=== PATIENT | male | born 1960 | race Caucasian/White ===

== ENCOUNTER 2017-03-05 12:19 | Emergency (ER) | payer MEDICAID ==
[~2017-03-05 12:19] MED LIST: IBUPROFEN 800 MG TAB PO SCH; predniSONE 20 MG TAB PO SCH
[2017-03-05 12:41] VITALS: RESP 18
--- NOTE | 2017-03-05 12:47 | EDPHY ---
H & P Stated Complaint: back pain Time Seen by Provider: 03/05/17 12:47 - Personal History Current Tetanus Diphtheria and Acellular Pertussis (TDAP): Unsure - Medical/Surgical History Hx Asthma: No Hx Chronic Respiratory Disease: Yes Hx Diabetes: No Hx Cardiac Disease: No Hx Renal Disease: No Hx Cirrhosis: No Hx Alcoholism: No Hx HIV/AIDS: No Hx Splenectomy or Spleen Trauma: No Other PMH: COPD, HTN, CHF - Social History Smoking Status: Current every day smoker Constitutional: Initial Vital Signs Temperature (C) 36.9 C 03/05/17 12:37 Heart Rate 94 03/05/17 12:37 Respiratory Rate 18 03/05/17 12:37 Blood Pressure 164/89 H 03/05/17 12:37 O2 Sat (%) 92 03/05/17 12:37 O2 Delivery Mode Room Air Allergies/Adverse Reactions: No Known Allergies Allergy (Unverified 03/05/17 13:01) Home Medications: Medication Instructions Recorded Ibuprofen [Motrin] 800 mg PO Q8 #20 tab 03/05/17 predniSONE 40 mg PO DAILY #10 tab 03/05/17 Medical Decision Making ED Course/Re-evaluation: CHIEF COMPLAINT: Back pain HISTORY OF PRESENT ILLNESS: This patient is a 56-year-old homeless gentleman who has a physician at the [facility]. He states that he has had back problems for several years in the past he has had such severe left leg pain that he has needed to use a walker. His back problems have exacerbated recently. He denies fevers or chills. He denies bowel or bladder dysfunction. He states that the pain radiates from his lower back down to his left leg to about the level of his knee. He also states that he has full function and can walk but he started using a walker again and he is having difficulty maneuvering in the snow and having more severe pain to the point where he can't sleep. He has not had any recent instrumentation of his back. REVIEW OF SYSTEMS: A 10 point review of systems was performed and is negative with the exception of the elements mentioned in the history of present illness. PHYSICAL EXAM: HR, BP, O2 Sat, RR. Temp noted General Appearance: Alert, well hydrated, appropriate, and non-toxic appearing. Head: Atraumatic without scalp tenderness or obvious injury Eyes: Pupils equal, round, reactive to light and accommodation, EOMI, no trauma , no injection. Ears: Clear bilaterally, no perforation, normal landmarks Nose: Atraumatic, no rhinorrhea, clear. Throat: There is no erythema or exudates, no lesions, normal tonsils, mucus membranes moist. Neck: Supple, nontender, no lymphadenopathy. Respiratory: No retractions, no distress, no wheezes, and no accessory muscle use. Lungs are clear to auscultation bilaterally. Cardiovascular: Regular rate and rhythm, no murmurs, rubs, or gallops. Bilateral carotid, radial, dorsalis pedis, and posterior tibial pulses intact. Good capillary refill all extremities. Gastrointestinal: Abdomen is soft, nontender, non-distended, no masses, no rebound, no guarding, no peritoneal signs. Musculoskeletal: Normal active ROM of all extremities, atraumatic. Neurological: Pain const rate leg raise and opposite straight leg raise. Worse on the left. No motor dysfunction on the left. Intact anterior tibialis. Alert, appropriate, and interactive. The patient has normal DTRs and non-focal cranial nerves, motor, sensory, and cerebellar exam. Skin: No rashes, good turgor, no nodules on palpation. Past medical history: Hepatitis C treated and cured, chronic recurrent lumbar spine degenerative problems, a bout of congestive heart failure a few years ago , hypertension Past surgical history: Noncontributory Family history: Noncontributory Social history: Homeless, denies alcohol or drug use except marijuana. Does not use cigarettes. DIFFERENTIAL DIAGNOSIS: The differential diagnosis for the patient's back pain included but was not limited to musculo-skeletal pain, epidural abscess, herniated disk, spinal fracture, and intra-abdominal causes including urinary system. MEDICAL DECISION MAKING: This patient has no evidence of fevers chills recent instrumentation or trauma. He has chronic back pain which is exacerbated recently. He is homeless. He has no evidence of intractable pain or motor deficit. This patient does not meet criteria for an emergent MRI. The biggest issue is the fact that the patient is homeless and he is currently using a walker to assist with his pain. Consequently, I have engaged the assistance of social work. Administered 60mg PO Prednisone and Lidocaine patch for pain relief. 14:16 Spoke with case management. The patient has been set up with a bed at the [facility] and provided with bus passes and sliders to assist him with using his walker in the snow. I have also given him prednisone 60 mg to take for 5 days. I will also discharge him with Oxy IR without Tylenol due to his liver disease. Follow up and return precautions discussed. He has been given a referral to [facility] for further evaluation of his back pain. He is comfortable with this plan. - Data Points Medications Given: Miscellaneous Information (Patch Removal) 1 ea TD DAILY21 KINGSLEY Stop: 09/01/17 20:59 Last Admin: 03/05/17 13:51 Dose: Not Given Discontinued Medications Lidocaine (Lidoderm 5%) 1 ea TD EDNOW ONE Stop: 03/05/17 13:07 Last Admin: 03/05/17 13:53 Dose: Not Given Oxycodone HCl (Oxycodone Ir) 10 mg PO EDNOW ONE Stop: 03/05/17 13:49 Last Admin: 03/05/17 13:49 Dose: 10 mg Prednisone (Prednisone) 60 mg PO EDNOW ONE Stop: 03/05/17 12:59 Last Admin: 03/05/17 13:03 Dose: 60 mg Departure - Departure Disposition: Home, Routine, Self-Care Clinical Impression: Back pain Qualifiers: Back pain location: low back pain Chronicity: chronic Back pain laterality: bilateral Sciatica presence: with sciatica Sciatica laterality: sciatica of left side Qualified Code(s): M54.42 - Lumbago with sciatica, left side Condition: Good Instructions: Chronic Back Pain (ED), Back Pain (ED) Additional Instructions: 1. Take Ibuprofen 800mg every 8 hours with food as prescribed as needed for pain. Take Oxycodone as prescribed for severe pain. 2. Use your Lidoderm patch as prescribed as needed for pain. 3. Follow up with your primary care provider. We have also referred you to a local group of spine specialists for further evaluation. 4. Return to the emergency department for severe pain, fever, numbness, difficulty walking, change in location or nature of pain or other concerns. Referrals: [facility],. [Clinic] - As per Instructions [facility] [Outside] - As per Instructions Prescriptions: Ibuprofen [Motrin] 800 mg PO Q8 #20 tab predniSONE 40 mg PO DAILY #10 tab Report Scribed for: Tevin Banda Report Scribed by: Karon Mo Date of Report: 03/05/17 Time of Report: 13:06
[2017-03-05] MEDS ORDERED: predniSONE 20 MG TAB PO ONE (12:58)
[2017-03-05] MEDS: LIDOCAINE 5% 1 EA PATCH TD ONE ×2 (13:23→13:53)
[2017-03-05] MEDS ORDERED: oxyCODONE IR 5 MG TAB ONE (13:47)
[2017-03-05] MEDS ORDERED: oxyCODONE IR 5 MG TAB PO ONE (13:48)
[2017-03-05 14:28] VITALS: BP 158/93; PULSE 92; TEMP 98.8; O2SAT 100
--- NOTE | 2017-03-05 15:31 | ASMTCMCOM ---
CM Note CM Note Notes: Met with patient and his significant other. They are enrolled in the [facility] in [place] but are concerned about sleeping arrangements (floor) at the [facility]. We discussed options and I have reserved one of our [facility] beds for the night. This will provide patient with a bed/cot to sleep in which will provide him with a little more comfort. I have also provided patient with a couple local leslie passes and MAPPED his prescriptions for Ibuprofen and Prednisone. Patient aware that CM was able to provide meds as a courtesy due to his current back issues and the weather. He understands that if he needs more medications he will need to follow up with his Dr. at the [facility] in [place]. Patient also tells CM that they are working with residential case manager in [facility] Date Signed: 03/05/2017 03:31 PM Electronically Signed By:Vianey Mora RN
[2017-03-05] MEDS ORDERED: PATCH REMOVAL 1 EA PATCH TD SCH (21:00)
== END 2017-03-05 15:26 | disposition home or self-care (01) ==
DX: M54.42 Lumbago with sciatica, left side (principal); I11.0 Hypertensive heart disease with heart failure; I50.9 Heart failure, unspecified; J44.9 Chronic obstructive pulmonary disease, unspecified; F17.200 Nicotine dependence, unspecified, uncomplicated
CPT/HCPCS: J7512

== ENCOUNTER 2017-03-22 13:31 | Inpatient (IN) | payer MEDICAID ==
--- NOTE | 2017-03-22 14:52 | CPEKG ---
Heart Rate: 89 RR Interval: 674 P-R Interval: 180 QRSD Interval: 92 QT Interval: 388 QTC Interval: 473 P [place]: 66 QRS [place]: 37 T Wave [place]: 38 EKG Severity - NORMAL ECG - EKG Impression: SINUS RHYTHM Electronically Signed By: Tequila Palencia 22-Mar-2017 21:05:13
[2017-03-22 14:54] LABS: PLATELET COUNT 82 10^3/uL (150-400)
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
[2017-03-22] MEDS ORDERED: HYDROmorphONE/DILAUDID 1 MG/ML INJ IVP PRN (18:04)
[2017-03-22] MEDS: oxyCODONE IR 5 MG TAB PO PRN ×2 (18:11→22:29)
[2017-03-22] MEDS ORDERED: D50W 25 GM/50 ML SYR IVP PRN (18:56)
[2017-03-22] MEDS ORDERED: ONDANSETRON 4 MG/2 ML VIAL IVP PRN (18:58)
[2017-03-22] MEDS ORDERED: ACETAMINOPHEN 325 MG TAB PO PRN (18:58)
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
[2017-03-22] MEDS ORDERED: IPRATROPIUM/ALBUTEROL 3 ML DEYVIAL ONE (20:06)
[2017-03-22] MEDS: IPRATROPIUM/ALBUTEROL 3 ML DEYVIAL IH SCH (20:09)
[2017-03-22] MEDS: FLUTICASONE/SALMETER 250/50MCG DISKUS IH SCH (20:09)
[2017-03-22] MEDS: predniSONE 20 MG TAB PO SCH (21:30)
[2017-03-22] MEDS: KETOROLAC 15 MG/1 ML SDV IVP PRN (21:30)
[2017-03-22] MEDS: PREGABALIN 75 MG CAP PO SCH (21:31)
[2017-03-22] MEDS: INSULIN REGULAR HUMAN 100 UNIT/ML SC SCH (23:49)
[2017-03-23] MEDS: oxyCODONE IR 5 MG TAB PO PRN ×5 (03:20→23:39)
[2017-03-23] MEDS: IPRATROPIUM/ALBUTEROL 3 ML DEYVIAL IH SCH ×4 (05:11→20:17)
[2017-03-23 07:06] LABS: PLATELET COUNT 75 10^3/uL (150-400)
[2017-03-23] MEDS ORDERED: LEVEMIR 10 UNIT SQ SCH (08:00)
[2017-03-23] MEDS: INSULIN REGULAR HUMAN 100 UNIT/ML SC SCH ×4 (08:18→23:38)
[2017-03-23] MEDS: FUROSEMIDE 40 MG/4 ML VIAL IVP SCH ×2 (08:31→15:00)
[2017-03-23] MEDS: predniSONE 20 MG TAB PO SCH (08:33)
[2017-03-23] MEDS: PANTOPRAZOLE SODIUM 40 MG TAB PO SCH (08:34)
[2017-03-23] MEDS: PREGABALIN 75 MG CAP PO SCH (08:34)
[2017-03-23] MEDS: INSULIN GLARGINE 100 UNITS/ML SYRINGE SC SCH ×2 (08:35→17:33)
--- NOTE | 2017-03-23 08:57 | PDHOMEO2F ---
Home Oxygen Face to Face Home Orders: I certify that a physician or a nurse practitioner or physician's assistant scientist has had a [id number] encounter with this patient on the date of this order due to the diagnosis listed, which relates to the primary reason the patient requires home oxygen. Alternative treatments have been tried, or considered, and deemed ineffective. It is anticipated that supplemental oxygen will result in improvement with treatment. Home oxygen qualifying diagnosis: COPD SpO2 on room air (%): 83 Frequency of home oxygen needed: continuous Home oxygen liters per minute: 3 Home oxygen delivery device: nasal cannula Concentrator: Yes E-tanks for mobility and back up: Yes If ordering portable O2, is the patient mobile in the home?: Yes I certify that, based on these findings, the home oxygen is medically necessary for this patient for the following length of time. Length of time home oxygen needed: 99 years
[2017-03-23] MEDS ORDERED: ENOXAPARIN 40 MG/0.4 ML SYR SC SCH (09:00)
[2017-03-23] MEDS ORDERED: NICOTINE 7 MG/24 HR PATCH TD SCH (09:00)
[2017-03-23] MEDS ORDERED: FUROSEMIDE 40 MG TAB PO SCH (09:00)
[2017-03-23] MEDS: KETOROLAC 15 MG/1 ML SDV IVP PRN ×3 (09:45→23:39)
[2017-03-23] MEDS: AZITHROMYCIN 250 MG TAB PO SCH (09:48)
[2017-03-23] MEDS ORDERED: NICOTINE 7 MG/24 HR PATCH TD PRN (10:28)
[2017-03-23] MEDS ORDERED: NICOTINE 14 MG/24 HR PATCH TD PRN (10:36)
--- NOTE | 2017-03-23 10:49 | PDMN ---
Medical Necessity Medical necessity: Change to IP, as of 03/22/17, per MD; los >2 mn for ongoing management of COPD exacerbation, worsening LE edema, chronic respiratory failure & severe L hip/leg pain; admit for further workup/monitoring, IV Lasix, Prednisone & nebs, CM consult & therapies; hx COPD, HTN, CHF, diabetes & homelessness; per H&P & order 03/22/17
[2017-03-23] MEDS: FLUTICASONE/SALMETER 250/50MCG DISKUS IH SCH ×2 (11:14→20:12)
[2017-03-23] MEDS: GABAPENTIN 100 MG CAP PO SCH (11:29)
--- NOTE | 2017-03-23 12:01 | HOSPPROG ---
Hospitalist Progress Note Assessment/Plan: Assessment: 56 yo M p/w acute COPD exacerbation in setting of chronic CHF, chronic musculoskeletal pain Plan: # COPD exacerbation. Acute, new problem, further w/u indicated. Likely 2/2 URI vs. poor outpt maintenance (does not have PCP, is not on any long-acting Rx) -remains clinically unresolved today w/ ongoing exp wheezes, short exp phase bilat and symptomatic SOB -cont D#2 Pred, ongoing scheduled duonebs, D#1 Azithro to shorten duration of sx (no PNA on CXR, personally interpreted) -supportive care w/ antitussive/mucolytics -RVP neg -get dimer to r/o PE as provoking factor -will need home supplemental oxygen, arranging w/ RT/case mgmt, complicated by homeless status # Chronic hypoxic respiratory failure. Patient is reportedly supposed to be on 3L NC at baseline (2/2 COPD, CHF), but he is not, reportedly due to homeless status -homelessness may not preclude supplemental o2 -RT to work on whether arranging is possible today # Chronic CHF. Unclear type, has LE edema and is not on diuretics or other Rx, EKG w/o ischemic findings (personally interpreted) -getting Echo to further define -does not appear to be in overt exacerbation on CXR, cont to monitor vol status -started on PO lasix bid, monitor lytes -start on CHEN # Chronic hip/knee/thigh pain. Suspect that this is osteoarthritic, but may also have neuropathic/sciatic component as well given his description -x-ray w/o fxr/dislocation -previously on lyrica, does not appear to be working, change to gabapentin 100/ 300 and encouraged outpt f/u at [facility] for ongoing PT -PRN NSAIDs -PT -heat pad Diet. Regular PPx. High risk, lovenox 40 Code. Full Dispo. ADD uncertain, remains clinically unresolved, patient admitted as INPT, cont INPT care as above. Subjective: ongoing cough, pain in LLE Objective: Vital Signs Temp Pulse Resp BP Pulse Ox 36.7 C 122 H 16 162/90 H 90 L 03/23/17 07:33 03/23/17 11:17 03/23/17 11:17 03/23/17 07:33 03/23/17 11:17 Microbiology 03/22/17 19:30 Respiratory Panel (PCR) - Final Nasal, Sinus - Swab No Organism Detected Laboratory Results 03/23/17 06:59 03/23/17 06:59 03/22/17 03/23/17 03/24/17 05:59 05:59 05:59 Intake Total 700 Output Total 600 1900 Balance 100 -1900 - Physical Exam Constitutional: no apparent distress, chronically ill appearing, uncomfortable, unkempt Cardiovascular: regular rate and rhythym, no murmur, rub, or gallop, edema (1+ bilat LE) Respiratory: reduced air movement (on exp bilat), expiratory wheeze, bronchial breath sounds, No inspiratory crackles, No respiratory distress Gastrointestinal: normoactive bowel sounds, soft, non-tender abdomen, no palpable masses Musculoskeletal: other (full ROM L hip and knee, able to ambulate safely) Neurologic: AAOx3, No weakness, No facial droop Psychiatric: interacting appropriately, not anxious, not encephalopathic, thought process linear ICD10 Worksheet Patient Problems: Problems Problem Status Onset Hypoxia Acute Dyspnea Acute Lower extremity edema Acute
[2017-03-23] MEDS ORDERED: guaiFENesin/CODEINE PHOS 10 ML UDCUP PO PRN (12:02)
--- NOTE | 2017-03-23 13:52 | ASMTCMCOM ---
CM Note CM Note Notes: 03/23/2017 Case Management Note Met w/pt and Reba. Pt requires O2 at d/c. Coordinated with RT. Emailed Jamil at the [facility] who agreed to O2 delivery before 10 am and after 5 pm at the [facility]. Insurance will only pay for portable O2 tanks and concentrator, insurance will not provide a portable concentrator. Pt is unable to pay for portable concentrator at this time. Pt and have completed the coordinated entry process at the [facility] and Jose is their pillowcase maker. Left VM at [phone] ext [phone] to alert to pt admission to hospital. Left room phone number for Jose to contact pt as pt cell phone is out of service for another week or so. Pt is part of the [facility] and rotates churches for sleeping at night. Discussed pt picking up O2 at senior care and taking it to the [facility] site each night or staying in the senior care and that case management would secure a reserved bed for pt only. Unfortunately case management can not secure a bed for . Pt does not want to leave and plans to grape picker O2 and stay in [facility] sites. There is family for both pt and however they are not a source of support at this time. Case Management d/c poc: to [facility] with O2. Follow up at [facility]. Case Management to follow. Date Signed: 03/23/2017 01:51 PM Electronically Signed By:Renuka Murdock RN
--- NOTE | 2017-03-23 14:13 | ECHO ---
[email or web address] [address] [address] Main: [phone] Fax: Transthoracic Echocardiogram Name: PRISCILA LEO MR#: [id number] Study Date: 03/23/2017 Study Time: 07:56 AM Date of : 1960 Age: 56 year(s) Height: 177.8 cm (70 in.) Weight: 103.42 kg (228 lb.) BSA: 2.21 m2 Gender: Male Examination: Echo Indication: CHF Image Quality: Technically Difficult Contrast: Requested by: Lela Cutler BP: 162 mmHg/90 mmHg Heart Rate: Rhythm: Indication: CHF Procedure Staff Binding Printer: Ariana Donaldson Physician: Clifford Jolly Requesting Provider: Conclusions: Mild concentric LV hypertrophy. EF is 68 %. Trivial mitral valve regurgitation. Trivial aortic valve regurgitation. There is no tricuspid valve regurgitation. Trivial pulmonic valve regurgitation. Normal size ascending aorta measuring 3.8 cm. Measurements: Chambers Valvular Assessment AV/MV Valvular Assessment TV/PV Normal Normal Normal Name Value Range Name Value Range Name Value Range Ao Tanisha (MM): 3.6 cm (2.2 cm-3.7 AV Vmax: 1.57 m/s (1 m/s-1.7 PV Vmax: 1.41 m/s (0.6 m/s-0.9 cm) m/s) m/s) IVSd (2D): 1.2 cm (0.6 cm-1.1 AV maxP mmHg ( - ) PV PGmax: 8 mmHg ( - ) cm) LVOT Vmax: 1.00 m/s (0.7 m/s-1.1 LVDd (2D): 5.5 cm (4.2 cm-5.9 m/s) cm) MV E Vmax: 0.61 m/s ( - ) LVDs (2D): 3.8 cm (2.1 cm-4 MV A Vmax: 0.85 m/s ( - ) cm) MV E/A: 0.72 ( - ) LVPWd (2D): 1.0 cm (0.6 cm-1 cm) LVEF (BP): 68 % (>=55 %) RVDd(2D): 3.6 cm (1.9 cm-3.8 cmmm) Continued Measurements: Chambers Valvular Assessment AV/MV Name Value Name Value Patient: PRISCILA LEO Study Date: 03/23/2017 Page 1 of 2 07:56 AM LADs Lon.7 cm MV DecTime: 230 m/s LA Area: 15.7 cm2 MV E/E' Septal: 8.90 MV E/E' Lateral: 6.70 Additional Vessels Name Value Ao Ascendin.8 cm Findings: Left Ventricle: Normal size left ventricle. Mild concentric LV hypertrophy. Normal global systolic LV function. EF is 68 %. No regional wall motion abnormality. Right Ventricle: Normal size right ventricle. Normal RV function. Left Atrium: The left atrium is normal in size. Right Atrium: The right atrium is normal in size. Mitral Valve: The mitral valve is normal in appearance. Trivial mitral valve regurgitation. No mitral stenosis is present. Aortic Valve: The aortic valve is tri-leaflet and functions normally. Trivial aortic valve regurgitation. No aortic valve stenosis is present. Tricuspid Valve: The tricuspid valve appears normal. There is no tricuspid valve regurgitation. Pulmonic Valve: The pulmonic valve is normal in appearance and function. Trivial pulmonic valve regurgitation. Aorta: Normal size aortic root measuring 3.6 cm. Normal size ascending aorta measuring 3.8 cm. Pericardium: No pericardial effusion. (No Signature Object) Patient: PRISCILA LEO Study Date: 03/23/2017 Page 2 of 2 07:56 AM [id number]
[2017-03-23] MEDS: BENZONATATE 100 MG CAP PO PRN ×2 (15:00→20:18)
[2017-03-23] MEDS: guaiFENesin 600 MG TAB.ER PO SCH ×2 (15:01→20:18)
[2017-03-23] MEDS ORDERED: GABAPENTIN 300 MG CAP PO SCH (21:00)
[2017-03-24] MEDS: oxyCODONE IR 5 MG TAB PO PRN ×4 (03:27→15:59)
[2017-03-24] MEDS: IPRATROPIUM/ALBUTEROL 3 ML DEYVIAL IH SCH ×2 (05:23→12:04)
[2017-03-24] MEDS: FUROSEMIDE 40 MG/4 ML VIAL IVP SCH (08:17)
[2017-03-24] MEDS: INSULIN GLARGINE 100 UNITS/ML SYRINGE SC SCH ×2 (08:18→15:59)
[2017-03-24] MEDS: guaiFENesin 600 MG TAB.ER PO SCH (08:19)
[2017-03-24] MEDS: predniSONE 20 MG TAB PO SCH (08:19)
[2017-03-24] MEDS: GABAPENTIN 100 MG CAP PO SCH (08:20)
[2017-03-24] MEDS: AZITHROMYCIN 250 MG TAB PO SCH (08:20)
[2017-03-24] MEDS: PANTOPRAZOLE SODIUM 40 MG TAB PO SCH (08:20)
[2017-03-24] MEDS: INSULIN REGULAR HUMAN 100 UNIT/ML SC SCH ×2 (09:49→12:35)
[2017-03-24] MEDS: FLUTICASONE/SALMETER 250/50MCG DISKUS IH SCH (12:02)
[2017-03-24 12:13] VITALS: O2SAT 91
[2017-03-24 12:18] VITALS: BP 133/80; PULSE 99; RESP 17; TEMP 98.2
--- NOTE | 2017-03-24 15:02 | HOSPPROG ---
Hospitalist Progress Note Assessment/Plan: : 56 yo M p/w acute COPD exacerbation in setting of chronic CHF, chronic musculoskeletal pain Plan: COPD exacerbation. complet 5 days of pred and azithro script for combivent Chronic hypoxic respiratory failure. Patient is reportedly supposed to be on 3L NC at baseline (2/2 COPD, CHF), but he is not, reportedly due to homeless status 02 Chronic CHF. Unclear type, has LE edema and is not on diuretics or other Rx, EKG w/o ischemic findings (personally interpreted) diuresed Chronic hip/knee/thigh pain. Suspect that this is osteoarthritic, but may also have neuropathic/sciatic component as well given his description limited script for opiates dispo: home today > 30 minutes Subjective: home 02 established. amenable to dc Objective: Vital Signs Temp Pulse Resp BP Pulse Ox 36.8 C 99 17 133/80 H 91 L 03/24/17 12:14 03/24/17 12:14 03/24/17 12:14 03/24/17 12:14 03/24/17 12:14 Laboratory Results 03/23/17 06:59 03/24/17 03:32 03/23/17 03/24/17 03/25/17 05:59 05:59 05:59 Intake Total 700 1440 Output Total 600 3500 Balance 100 -2059 - Physical Exam Constitutional: no apparent distress, appears nourished Eyes: PERRL, anicteric sclera Ears, Nose, Mouth, Throat: moist mucous membranes, hearing normal Cardiovascular: regular rate and rhythym, no murmur, rub, or gallop Respiratory: no respiratory distress, no rales or rhonchi Gastrointestinal: normoactive bowel sounds, soft, non-tender abdomen Genitourinary: no bladder fullness, No montano in urethra Skin: warm, normal color Musculoskeletal: full muscle strength Neurologic: AAOx3 ICD10 Worksheet Patient Problems: Problems Problem Status Onset Dyspnea Acute Hypoxia Acute Lower extremity edema Acute
--- NOTE | 2017-03-24 17:32 | ASDISCHSUM ---
Discharge Information Plan Status:Homeless/Senior Living Medically Cleared to Leave:03/23/2017 Discharge Date:03/24/2017 04:20 PM CM D/C Disposition:Home, Routine, Self-Care ADT D/C Disposition:Home, Routine, Self-Care Projected Discharge Date:03/24/2017 04:20 PM Transportation at D/C:Self Discharge Delay Reason: Follow-Up Date:03/24/2017 04:20 PM Discharge Slot: Final Diagnosis: Placement Information Patient Contact Information Contact Name:MAYKEL Relationship: Address:[address] Work Phone: City:[place] Alternate Phone: [facility]/Zip Code:[place] [address] Email: Financial Information Financial Class: Primary Plan Desc:[employer] [place] Primary Plan Number:[id number] Secondary Plan Desc: Secondary Plan Number: Assessment Information [facility] CM Progress Note CM Note CM Note Notes: 03/23/2017 Case Management Note Met w/pt and Reba. Pt requires O2 at d/c. Coordinated with . Mery Negron at the [facility] who agreed to O2 delivery before 10 am and after 5 pm at the [facility]. Insurance will only pay for portable O2 tanks and concentrator, insurance will not provide a portable concentrator. Pt is unable to pay for portable concentrator at this time. Pt and have completed the coordinated entry process at the [facility] and Jose is their counseling case manager. Left at [phone] ext [phone] to alert to pt admission to hospital. Left room phone number for Jose to contact pt as pt cell phone is out of service for another week or so. Pt is [facility] of [facility] and rotates churches for sleeping at night. Discussed pt [facility] and taking [facility] to the [facility] each night or staying in the [facility] and that case management would secure a reserved bed for pt only. Unfortunately case management can not secure a bed for . Pt does not want to leave and plans to picking supervisor O2 and stay in [facility] sites. There is family for both pt and however they are not a source of support at this time. Case Management d/c poc: to [facility] with O2. [facility] Case Management to follow. Date Signed: 03/23/2017 01:51 PM Electronically Signed By:Renuka Murdock RN LACE LACE Length of stay for Answers: 2 days current admission Acuity / Level of Care Answers: Was the patient admitted to hospital via the emergency department? Yes: Comorbidities - select Answers: Cerebrovascular disease all that apply Peripheral vascular disease Emergency dept visits in Answers: 1 last 6 months Score: 8 Date Signed: 03/24/2017 05:29 PM Electronically Signed By:Renuka Murdock RN Case Management Discharge Plan Note Case Management Discharge Discharge Order Complete? Answers: Yes Patient to Obtain Answers: Independently Medications Transportation Arranged Answers: Taxi - Voucher Discharge Comments Notes: 03/24/2017 Case Management Note Met w/pt and several times over the course of the day requiring significant amounts of time. Arranged delivery [facility] to [facility] the night. Provided loan closet information for pt walker request. Provided cab voucher for transport to [facility]. Emailed Jamil at the [facility] to keep updated and pass along progress to Jose the counseling case manager for the couple. Date Signed: 03/24/2017 05:31 PM Electronically Signed By:Renuka Murdock RN Intervention Information Intervention Type:Cab Vouchers Date of Service:03/24/2017 05:28 PM Patient Type:Inpatient Staff Member:MARIAH Murdock, [facility] Hours: Discipline: Severity: Comment:
--- NOTE | 2017-03-25 04:59 | GDS ---
[f rep st] DISCHARGE SUMMARY DISCHARGE DIAGNOSES: Acute on chronic hypoxemic respiratory failure, chronic obstructive pulmonary d isease, new homelessness, musculoskeletal pain, hypertension, tobacco use. HISTORY: Please see admission history and physical by Dr. Lela Cutler. HOSPITAL COURSE: The patient presented with worsening lower extremity edema and shortness of breath. He was diuresed. He had lost his oxygen secondary to homelessness. He had a lower extremity ultra sound, which was negative for DVT. He had a hip film, negative for fracture. He was diuresed a coup le of liters with improvement of his edema. He remained hypoxic. He had a negative D-dimer. The kena nguyễn is discharged home with oxygen, a few pain pills, refills of his prescriptions, which include b ronchodilators and tiotropium. Oxygen was provided. /[id number]/MODL
== END 2017-03-24 16:20 | disposition home or self-care (01) | DRG 190 ==
LOC: F2W 16:27 → OBSVTOIN 18:56
PROVIDERS: ADMIT Internal Medicine; ATTEND Internal Medicine
DX: J44.1 Chronic obstructive pulmonary disease with (acute) exacerbation (principal); I11.0 Hypertensive heart disease with heart failure; J96.21 Acute and chronic respiratory failure with hypoxia; I50.9 Heart failure, unspecified; M79.606 Pain in leg, unspecified; E11.9 Type 2 diabetes mellitus without complications; Z79.4 Long term (current) use of insulin; Z99.81 Dependence on supplemental oxygen; F17.210 Nicotine dependence, cigarettes, uncomplicated; Z59.0 Homelessness
CPT/HCPCS: 97161-GP; 97166-GO; 97530-GO; J1170; J1650; J1815; J1885; J1940; J7512

== ENCOUNTER 2017-07-21 23:48 | Emergency (ER) | payer MEDICAID ==
--- NOTE | 2017-07-22 00:05 | CPEKG ---
Heart Rate: 96 RR Interval: 625 P-R Interval: 180 QRSD Interval: 94 QT Interval: 392 QTC Interval: 496 P [place]: 71 QRS [place]: 38 T Wave [place]: 45 EKG Severity - ABNORMAL ECG - EKG Impression: SINUS RHYTHM EKG Impression: BORDERLINE PROLONGED QT INTERVAL Electronically Signed By: Uma Gutierrez 22-Jul-2017 08:16:11
--- NOTE | 2017-07-22 00:34 | EDPHY ---
H & P Stated Complaint: chest pain Time Seen by Provider: 07/22/17 00:15 HPI/ROS: HPI The patient presents with chest pain, brought in by ambulance. Apparently he was found passed out on someone's porch. Police were called initially and then the patient went to the park. He fell asleep again and then complained of chest pain so was transported to the emergency department for evaluation. The patient is quite sedate and not an adequate historian currently though he does deny chest pain. He says that he is always wheezing and that his legs are always swollen. He says he does not have access to his medications or his 3 L of oxygen that he is supposed to be wearing. He says he is staying at the [facility]. REVIEW OF SYSTEMS Constitutional: No fever, no chills. Eyes: No discharge. ENT: No sore throat. Cardiovascular: Positive for chest pain, no palpitations. Respiratory: No cough, no shortness of breath. Gastrointestinal: No abdominal pain, no vomiting. Genitourinary: No hematuria. Musculoskeletal: No back pain. Skin: No rashes. Neurological: No headache. PMHx: CHF, COPD, diabetes, hypertension Soc Hx: Homeless, likely alcohol use PHYSICAL General Appearance: Sleepy, arouses to loud voice, able to answer some questions Eyes: Pupils equal and round no pallor or injection ENT, Mouth: Mucous membranes moist Respiratory: There are audible inspiratory and expiratory wheezes Cardiovascular: Regular rate and rhythm Gastrointestinal: Abdomen is soft and non-tender, no masses, bowel sounds normal Neurological: A&O, moves all extremities Skin: Warm and dry, no rashes Musculoskeletal: Neck is supple non tender Extremities: symmetrical, 2+ pitting edema bilaterally with venous stasis changes Psychiatric: Patient is oriented X 3, there is no agitation Source: Patient, EMS Exam Limitations: Intoxication - Medical/Surgical History Hx Asthma: No Hx Chronic Respiratory Disease: Yes Hx Diabetes: No Hx Cardiac Disease: No Hx Renal Disease: No Hx Cirrhosis: No Hx Alcoholism: No Hx HIV/AIDS: No Hx Splenectomy or Spleen Trauma: No Other PMH: COPD, HTN, CHF, diabetes - Social History Smoking Status: Current every day smoker Constitutional: Initial Vital Signs Temperature (C) 36.4 C 07/21/17 23:55 Heart Rate 99 07/21/17 23:55 Respiratory Rate 20 07/21/17 23:55 Blood Pressure 131/99 H 07/21/17 23:55 O2 Sat (%) 90 L 07/21/17 23:55 O2 Delivery Mode Room Air O2 (L/minute) 2 Allergies/Adverse Reactions: No Known Allergies Allergy (Verified 07/21/17 23:55) Home Medications: Medication Instructions Recorded Albuterol Sulfate [Proair Hfa] 2 puffs IN QID PRN #1 hfa.aer.ad 03/24/17 Azithromycin [Zithromax] 500 mg PO DAILY #3 tab 03/24/17 Fluticasone/Salmeter 250/50Mcg 1 puffs IH BID #1 disk 03/24/17 [Advair 250/50 (*)] Furosemide [Lasix 40 MG (*)] 40 mg PO DAILY #30 tab 03/24/17 Levemir 10 units SQ BIDMEAL #1 03/24/17 Pregabalin [Lyrica 75mg (*)] 75 mg PO BID #60 cap 03/24/17 Tiotropium Inhaler [Spiriva 1 tab IN DAILY #1 mdi 03/24/17 Inhaler (RX)] oxyCODONE IR [Oxycodone Ir (*)] 5 - 10 mg PO Q4 PRN #20 tab 03/24/17 predniSONE 40 mg PO DAILY #3 tablet 03/24/17 Medical Decision Making - Diagnostics EKG Interpretation: EKG: Complete interpretation has been separately recorded in the [facility] archive. Summary impression: Sinus rhythm, no ST segment elevation or depression Imaging Results: Chest x-ray two views is unchanged from prior with mild cardiomegaly, no infiltrate, no effusion, interpreted by me, radiology interpretation is pending. Imaging: I viewed and interpreted images myself Differential Diagnosis: 57-year-old male with homelessness, hypertension, diabetes, CHF, COPD presents with complaint of chest pain when police picked him up at a park where he was sleeping. The patient has normal vital signs, seems intoxicated, has audible wheezing and lower extremity edema. Differential diagnosis includes [facility] seeking behavior, COPD in exacerbation, CHF exacerbation, ACS, pulmonary embolism is a consideration. In the emergency department, patient's chest x-ray, EKG, labs were checked and were all relatively unremarkable. The patient does seem to be chronically quite ill though does not seem to have decompensated and is not in CHF for COPD exacerbation. He had no ongoing chest pain here, I feel like PE is unlikely. His alcohol level was elevated. He eventually was able to walk with a steady gait and [facility]. - Data Points Laboratory Results: Laboratory Results 07/22/17 00:45 07/22/17 00:45 07/22/17 07/22/17 00:45 00:45 WBC 5.18 10^3/uL 10^3/uL (3.80-9.50) RBC 4.35 10^6/uL L 10^6/uL (4.40-6.38) Hgb 14.4 g/dL g/dL (13.7-17.5) Hct 41.3 % % (40.0-51.0) MCV 94.9 fL fL (81.5-99.8) MCH 33.1 pg pg (27.9-34.1) MCHC 34.9 g/dL g/dL (32.4-36.7) RDW 15.3 % H % (11.5-15.2) Plt Count 109 10^3/uL L 10^3/uL (150-400) MPV 9.9 fL fL (8.7-11.7) Neut % (Auto) 56.3 % % (39.3-74.2) Lymph % (Auto) 29.5 % % (15.0-45.0) [place] % (Auto) 8.7 % % (4.5-13.0) Eos % (Auto) 4.1 % % (0.6-7.6) Baso % (Auto) 0.8 % % (0.3-1.7) Nucleat RBC Rel Count 0.0 % % (0.0-0.2) Absolute Neuts (auto) 2.92 10^3/uL 10^3/uL (1.70-6.50) Absolute Lymphs (auto) 1.53 10^3/uL 10^3/uL (1.00-3.00) Absolute Monos (auto) 0.45 10^3/uL 10^3/uL (0.30-0.80) Absolute Eos (auto) 0.21 10^3/uL 10^3/uL (0.03-0.40) Absolute Basos (auto) 0.04 10^3/uL 10^3/uL (0.02-0.10) Absolute Nucleated RBC 0.00 10^3/uL 10^3/uL (0-0.01) Immature Gran % 0.6 % % (0.0-1.1) Immature Gran # 0.03 10^3/uL 10^3/uL (0.00-0.10) Sodium 144 mEq/L mEq/L (135-145) Potassium 3.8 mEq/L mEq/L (3.5-5.2) Chloride 106 mEq/L mEq/L (97-110) Carbon Dioxide 22 mEq/l mEq/l (22-31) Anion Gap 16 mEq/L mEq/L (8-16) BUN 15 mg/dL mg/dL (7-23) Creatinine 0.5 mg/dL L mg/dL (0.7-1.3) Estimated GFR > 60 Glucose 102 mg/dL H mg/dL (70-100) Calcium 7.9 mg/dL L mg/dL (8.5-10.4) Troponin I < 0.012 ng/mL ng/mL (0.000-0.034) NT-Pro-B Natriuret Pep 29 pg/mL pg/mL (0-125) Ethyl Alcohol 156 mg/dL H mg/dL (0-10) Medications Given: Discontinued Medications Chlordiazepoxide (Librium 25 Mg Prepack#6) [facility] Stop: 07/22/17 03:16 Last Admin: 07/22/17 03:22 Dose: 1 btl Departure - Departure Disposition: Home, Routine, Self-Care Clinical Impression: Chest pain Qualifiers: Chest pain type: unspecified Qualified Code(s): R07.9 - Chest pain, unspecified Congestive heart failure Qualifiers: Heart failure type: unspecified Heart failure chronicity: chronic Qualified Code(s): I50.9 - Heart failure, unspecified Alcohol intoxication Qualifiers: Complication of substance-induced condition: with delirium Qualified Code(s): F10.921 - Alcohol use, unspecified with intoxication delirium Condition: Good Instructions: Chlordiazepoxide (By mouth), Chest Pain (ED) Additional Instructions: Please follow-up with your doctor in the next few days. Referrals: AIA,DENNY [Other] - As per Instructions
[2017-07-22 00:57] LABS: PLATELET COUNT 109 10^3/uL (150-400)
[2017-07-22] MEDS ORDERED: SKIN ADHESIVE (DERMABOND) 1 EACH TP ONE (02:20)
[2017-07-22] MEDS ORDERED: CHLORDIAZEPOXIDE 25MG PREPK#6 BTL TAKEHOME ONE (03:15)
[2017-07-22 04:00] VITALS: BP 134/74
== END 2017-07-22 04:00 | disposition home or self-care (01) ==
LOC: EDUNIT#
DX: I11.0 Hypertensive heart disease with heart failure (principal); I50.9 Heart failure, unspecified; F10.921 Alcohol use, unspecified with intoxication delirium; J44.9 Chronic obstructive pulmonary disease, unspecified; E11.9 Type 2 diabetes mellitus without complications; F17.200 Nicotine dependence, unspecified, uncomplicated
CPT/HCPCS: G0480

== ENCOUNTER 2017-07-22 23:53 | Emergency (ER) | payer MEDICAID ==
[2017-07-23 00:02] VITALS: BP 132/77
--- NOTE | 2017-07-23 00:56 | EDPHY ---
H & P Stated Complaint: Sent by [facility] - SOB Time Seen by Provider: 07/23/17 00:39 HPI/ROS: Chief Complaint: Alcohol intoxication HPI: 57-year-old male with a history of multiple chronic medical diseases who is homeless and alcoholic. He is being brought in for evaluation. Patient was seen last night about [facility]. Patient was found intoxicated get this evening. He was taken to the [facility] but was sent here for further evaluation because he has been coughing. He denies any fevers or chills. Denies any shortness of breath. Does have some swelling in his legs which she says has been there "for a long time". Patient is clinically intoxicated and is answering questions but is a poor historian. ROS: 10 point Review of Systems is negative except as noted in the HPI. Social History: Positive smoking, positive alcohol Family History: non-contributory Physical Exam: Gen: Awake, Alert, No Distress HEENT: Nose: no rhinorrhea Eyes: PERRLA, EOMI Mouth: Moist mucosa Neck: Supple, no JVD Chest: nontender, lungs clear to auscultation, no wheeze, rales or rhonchi Heart: S1, S2 normal, no murmur Abd: Soft, non-tender, no guarding Back: no CVA tenderness, no midline tenderness Ext: no edema, non-tender Skin: no rash Neuro: CN II-XII intact, Sensation grossly intact, Strength 5/5 in bilateral upper and lower extremities - Personal History Current Tetanus/Diphtheria Vaccine: Yes Current Tetanus Diphtheria and Acellular Pertussis (TDAP): Yes - Medical/Surgical History Hx Asthma: No Hx Chronic Respiratory Disease: Yes Hx Diabetes: No Hx Cardiac Disease: No Hx Renal Disease: No Hx Cirrhosis: No Hx Alcoholism: No Hx HIV/AIDS: No Hx Splenectomy or Spleen Trauma: No Other PMH: COPD, HTN, CHF, diabetes. - Social History Smoking Status: Heavy smoker Constitutional: Initial Vital Signs Temperature (C) 36.4 C 07/22/17 23:57 Heart Rate 104 H 07/22/17 23:57 Respiratory Rate 18 07/22/17 23:57 Blood Pressure 132/77 H 07/22/17 23:57 O2 Sat (%) 91 L 07/22/17 23:57 O2 Delivery Mode Room Air Allergies/Adverse Reactions: No Known Allergies Allergy (Verified 07/21/17 23:55) Home Medications: Medication Instructions Recorded Azithromycin [Zithromax] 500 mg PO DAILY #3 tab 03/24/17 Fluticasone/Salmeter 250/50Mcg 1 puffs IH BID #1 disk 03/24/17 [Advair 250/50 (*)] Furosemide [Lasix 40 MG (*)] 40 mg PO DAILY #30 tab 03/24/17 Levemir 10 units SQ BIDMEAL #1 03/24/17 Pregabalin [Lyrica 75mg (*)] 75 mg PO BID #60 cap 03/24/17 Medical Decision Making ED Course/Re-evaluation: 57-year-old homeless male presenting for medical clearance for the [facility]. Patient has multiple chronic medical conditions but is currently at his baseline. He is satting 91% on room air. He is clinically intoxicated with some mild respiratory depression from this. Remainder of his vital signs are unremarkable. Lungs are clear to auscultation. He is medically cleared for the [facility] Patient is now stating that the medication that he"ran out"is an albuterol inhaler which she uses as needed. He is not currently wheezing but will send him home with 1 at this time. Departure - Departure Disposition: Home, Routine, Self-Care Clinical Impression: Alcoholic intoxication Condition: Good Instructions: Alcohol Intoxication (ED), Albuterol (By breathing), Chlordiazepoxide (By mouth) Referrals: DENNY DUNCAN [Other] - As per Instructions
[2017-07-23] MEDS ORDERED: CHLORDIAZEPOXIDE 25MG PREPK#6 BTL TAKEHOME ONE (00:57)
[2017-07-23] MEDS ORDERED: ALBUTEROL INH PREPACK MDI TAKEHOME ONE (00:57)
== END 2017-07-23 01:27 | disposition home or self-care (01) ==
DX: F10.129 Alcohol abuse with intoxication, unspecified (principal); J44.9 Chronic obstructive pulmonary disease, unspecified; I11.0 Hypertensive heart disease with heart failure; I50.9 Heart failure, unspecified; E11.9 Type 2 diabetes mellitus without complications; F17.200 Nicotine dependence, unspecified, uncomplicated